=== PATIENT | female | born 1965 | race African-American/Black ===

== ENCOUNTER 2018-02-12 18:39 | Emergency (ER) | payer OTHER ==
[~2018-02-12] VITALS: Ht 160 cm; Wt 76.2 kg
[2018-02-12] MEDS ORDERED: NAPROSYN500 MG PO (20:04)
[2018-02-12 20:44] VITALS: BP 132/84
== END 2018-02-12 20:46 | disposition home or self-care (01) ==
LOC: ER 18:39
DX: S80.02XA Contusion of left knee, initial encounter (principal); F17.200 Nicotine dependence, unspecified, uncomplicated; W01.198A Fall on same level from slipping, tripping and stumbling with subsequent striking against other object, initial encounter; Y92.89 Other specified places as the place of occurrence of the external cause; Y99.0 Civilian activity done for income or pay; Y99.8 Other external cause status